=== PATIENT | female | born 1985 | race African-American/Black ===

== ENCOUNTER 2019-04-20 23:33 | Emergency (ER) | payer OTHER ==
[~2019-04-20] VITALS: Ht 162.6 cm; Wt 114.3 kg
[~2019-04-20 23:33] MED LIST: RANI-369 PO
[2019-04-20 23:59] VITALS: BP 123/81
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
== END 2019-04-21 00:29 | disposition home or self-care (01) ==
LOC: ER 23:33
DX: M79.661 Pain in right lower leg (principal); M54.5 Low back pain; R10.9 Unspecified abdominal pain; F12.90 Cannabis use, unspecified, uncomplicated; Z98.890 Other specified postprocedural states; V89.2XXA Person injured in unspecified motor-vehicle accident, traffic, initial encounter; Y93.89 Activity, other specified; Y92.89 Other specified places as the place of occurrence of the external cause; Y99.8 Other external cause status
CPT/HCPCS: 99281

== ENCOUNTER 2019-07-14 09:44 | Emergency (ER) | payer OTHER ==
[~2019-07-14] VITALS: Ht 162.6 cm; Wt 109.0 kg
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
--- NOTE | 2019-07-14 10:58 | RAD ---
One view abdomen pelvis HISTORY: Constipation Upright supine AP view abdomen pelvis There is air and stool scattered throughout the colon. There is multiple dilated air-filled loops of small bowel. There is no free air. IMPRESSION: Nonspecific bowel gas pattern could represent a mild ileus or partial small bowel obstruction. Electronically signed by: Ren Black III, MD (07/14/2019 10:55 AM) [id number]
[2019-07-14 11:03] LABS: BILIRUBIN,URINE NEGATIVE (NEG); CLARITY,URINE CLEAR; COLOR,URINE YELLOW; NITRITE,URINE NEGATIVE (NEG); PROTEIN,URINE NEGATIVE (NEG-TRACE)
[2019-07-14 11:09] LABS: BACTERIA,URINE FEW /HPF (0-FEW); RBC,URINE >40 /HPF (0-2)
[2019-07-14 11:10] LABS: SQUAMOUS EPITHELIAL CELL,UR FEW /LPF
[2019-07-14 11:17] LABS: U PREG PATIENT NEGATIVE (NEG)
[2019-07-14 13:15] VITALS: BP 147/94
[2019-07-14] MEDS ORDERED: MAGN296S68 PO (13:31)
--- NOTE | 2019-07-14 15:10 | RAD ---
Abdominal and Pelvis CT, Without Contrast: History: Constipation and abnormal x-ray Comparison: None. Procedure: Axial images are obtained of the abdomen and pelvis, without IV or oral contrast. Oral Contrast: No Findings: Evaluation of solid organs is limited without contrast. The gallbladder appears normal. The appendix is normal. The uterus appears within normal limits. The right ovary is not seen and may be small. There is a 4.3 x 3.0 cm cyst in the left ovary. Liver: Normal. Spleen: Normal. Pancreas: Normal. Adrenal Glands: Normal. Kidneys: Normal. There is no free air or free fluid. There is no lymphadenopathy. The urinary bladder appears normal. There is no pericolonic inflammation identified. There is multiple air and fluid-filled loops of small bowel. The colon appears normal. Impression: 1. Left ovarian cyst. Recommend a 3-4 month follow-up ultrasound. 2. Mild ileus. End impression PQRS Compliance Statement: One or more of the following individualized dose reduction techniques were utilized for this examination: 1. Automated exposure control 2. Adjustment of the mA and/or kV according to patient size 3. Use of iterative reconstruction technique Electronically signed by: Ren Black III, MD (07/14/2019 11:56 AM) [id number]
== END 2019-07-14 13:42 | disposition home or self-care (01) ==
LOC: ER 09:44
DX: K59.00 Constipation, unspecified (principal); R10.84 Generalized abdominal pain; R11.0 Nausea; E66.01 Morbid (severe) obesity due to excess calories; R14.0 Abdominal distension (gaseous); I10 Essential (primary) hypertension; F17.200 Nicotine dependence, unspecified, uncomplicated; F12.90 Cannabis use, unspecified, uncomplicated; Z98.890 Other specified postprocedural states; Z68.41 Body mass index [BMI] 40.0-44.9, adult
CPT/HCPCS: 74021; 74176; 81001; 81025; 87086; 99285

== ENCOUNTER 2019-11-03 03:46 | Emergency (ER) | payer OTHER ==
[~2019-11-03] VITALS: Ht 167.6 cm; Wt 100.0 kg
[~2019-11-03 03:46] MED LIST changes: +MAGN296S68 PO
[2019-11-03] MEDS ORDERED: IV NORMAL SALINE 1000ML BAG 1,000 ML IV ONE (04:15)
--- NOTE | 2019-11-03 04:21 | EKG ---
[facility] [address] [place] [address] Test Date: 2019-11-03 Test Time: 04:18:13 Pat Name: FRANCIA SERVIN Department: Room: Gender: F [employer] Observer: : 1985 Requested By: RAMEZ PADILLA Order Number: [id number] Reading MD: Measurements Intervals Kirby Rate: 102 P: 49 ME: 142 QRS: 14 QRSD: 78 T: 23 QT: 352 QTc: 463 Interpretive Statements SINUS TACHYCARDIA VENTRICULAR PREMATURE COMPLEX(ES) QRS(T) CONTOUR ABNORMALITY CONSIDER ANTEROLATERAL MYOCARDIAL DAMAGE T ABNORMALITY IN ANTERIOR LEADS ABNORMAL ECG RI6.01 No previous ECG available for comparison
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
--- NOTE | 2019-11-03 04:47 | RAD ---
CT head without contrast: Reason for examination: Altered mental status. Axial images were obtained through the brain. No contrast was administered. Exposure: One or more of the following individualized dose reduction techniques were utilized for this examination: 1. Automated exposure control 2. Adjustment of the mA and/or kV according to patient size 3. Use of iterative reconstruction technique. Ventricular systems are symmetric and not dilated. No midline shift is seen. There is no evidence of intracranial hemorrhage, infarct, mass or edema. No abnormalities are seen at the orbits. The paranasal sinuses and mastoid air cells are clear. No acute skull abnormality is seen. IMPRESSION: No acute intracranial abnormality evident. Electronically signed by: Kadie Shah MD (11/03/2019 4:44 AM) [id number]
[2019-11-03 05:41] LABS: BARBITURATES NEG (NEG); BENZODIAZEPINES NEG (NEG); CANNABINOIDS POS (NEG); COCAINE POS (NEG); METHADONE NEG (NEG); OPIATES NEG (NEG); PHENCYCLIDINE NEG (NEG)
[2019-11-03 05:43] LABS: AMPHETAMINE/METHAMPHETAMINE NEG (NEG)
[2019-11-03 05:49] LABS: BILIRUBIN,URINE NEGATIVE (NEG); CLARITY,URINE CLEAR; COLOR,URINE YELLOW; NITRITE,URINE NEGATIVE (NEG); PH,URINE 5.5 (<5.0-8.0); PROTEIN,URINE 100 mg/dL (NEG-TRACE); UROBILINOGEN,URINE 0.2 mg/dL (0.2 mg/dL)
[2019-11-03 06:04] LABS: BACTERIA,URINE 0 /HPF (0-FEW); RBC,URINE 0 /HPF (0-2); WBC,URINE 0 /HPF (0-4)
[2019-11-03 06:05] LABS: AMORPHOUS SEDIMENT,UR PRESENT /HPF
[2019-11-03 06:26] LABS: CALCIUM 8.3 mg/dL (8.5-10.1); CREATININE 0.8 mg/dL (0.6-1.0); GFR 100.6; POTASSIUM 3.9 mmol/L (3.5-5.1)
[2019-11-03 06:31] LABS: BASO # 0.1 x10^3/uL (0.0-0.2); BASO % 1 % (0-3); EOS % 0 % (0-3); HEMATOCRIT 41.7 % (36.0-47.0); LYMPH # 2.3 x10^3/uL (1.0-4.8); LYMPH % 29 % (24-48); MEAN CORPUSCULAR HEMOGLOBIN 31 pg (25-35); MEAN CORPUSCULAR HGB CONC 34 g/dL (31-37); MEAN CORPUSCULAR VOLUME 91 fL (79-100); MONO # 0.6 x10^3/uL (0.0-1.1); MONO % 8 % (0-9); NEUT # 4.9 x10^3/uL (1.8-7.7); NEUT % 62 % (31-73); PLATELET COUNT 251 x10^3/uL (140-400); RED BLOOD COUNT 4.61 x10^6/uL (3.50-5.40); RED CELL DISTRIBUTION WIDTH 13.8 % (11.5-14.5); WHITE BLOOD COUNT 7.9 x10^3/uL (4.0-11.0)
[2019-11-03 06:33] LABS: ALBUMIN 3.7 g/dL (3.4-5.0); MAGNESIUM 1.7 mg/dL (1.8-2.4); TOTAL BILIRUBIN 0.2 mg/dL (0.2-1.0); TOTAL PROTEIN 7.3 g/dL (6.4-8.2)
[2019-11-03 07:07] VITALS: BP 156/86
== END 2019-11-03 07:09 | disposition home or self-care (01) ==
LOC: ER 03:46
DX: R41.82 Altered mental status, unspecified (principal); F10.229 Alcohol dependence with intoxication, unspecified; I10 Essential (primary) hypertension; F17.200 Nicotine dependence, unspecified, uncomplicated; F12.90 Cannabis use, unspecified, uncomplicated; Z98.890 Other specified postprocedural states
CPT/HCPCS: 36415; 70450; 80053; 80307; 81001; 81025; 83735; 85025; 93005; 96360; 96361; 99285; G0480; J7030; P9612

== ENCOUNTER 2020-02-21 10:47 | Emergency (ER) | payer OTHER ==
[~2020-02-21] VITALS: Ht 162.6 cm; Wt 107.0 kg
--- NOTE | 2020-02-21 11:44 | PHYS DOC ---
Past Medical History Past Medical History: No Pertinent History (LEWIS GAITAN BEAM DYER RECESSED VAT) Past Surgical History: No Surgical History Additional Past Surgical Histo: c sec x2 (LEWIS GAITAN BEAM DYER RECESSED VAT) Smoking Status: Never Smoker Alcohol Use: Occasionally Drug Use: Marijuana Social History Narrative: DAILY MARIJUANA USE (MARQUEZLEWIS BEAM DYER RECESSED VAT) General Adult EDM: Chief Complaint: COUGH HPI: HPI: Patient is a 34 year old female who presents with for the last 8 days she has had nasal congestion, chest tightness, cough that causes her chest to hurt when she coughs and today began having a loss of taste and smell. Patient states that she got tested last week and it was negative. Patient states that her work sent her here today to get tested again especially since she suddenly lost her taste and smell. Patient states her symptoms have not gotten any worse but they have not gotten any better. Patient denies abdominal pain, nausea, vomiting, shortness of breath, diarrhea, fever, numbness or tingling, dizziness, syncope, headache, vision changes, focal weakness. Rates her discomfort at this time an 8 out of 10. No pain. Currently no chest pain as it only happens when she coughs. Patient has a history of hypertension and . (LEWIS GAITAN BEAM DYER RECESSED VAT) Review of Systems: Review of Systems: Constitutional: Denies fever or chills. [] Eyes: Denies change in visual acuity. [] HENT: + nasal congestion or denies sore throat. [] Respiratory: + cough or denies shortness of breath. [] Cardiovascular: + chest pain with coughing or denies edema. [] GI: Denies abdominal pain, nausea, vomiting, bloody stools or diarrhea. [] : Denies dysuria. [] Musculoskeletal: Denies back pain or joint pain. [] Integument: Denies rash. [] Neurologic: Denies headache, focal weakness or sensory changes. [] Endocrine: Denies polyuria or polydipsia. [] Lymphatic: Denies swollen glands. [] Psychiatric: Denies depression or anxiety. [] (LEWIS GAITAN BEAM DYER RECESSED VAT) Heart Score: Risk Factors: Risk Factors: DM, Current or recent (<one month) smoker, HTN, HLP, family history of CAD, obesity. Risk Scores: Score 0 - 3: 2.5% MACE over next 6 weeks - Discharge Home Score 4 - 6: 20.3% MACE over next 6 weeks - Admit for Clinical Observation Score 7 - 10: 72.7% MACE over next 6 weeks - Early Invasive Strategies (LEWIS GAITAN APRN) Allergies: Allergies: Allergies Coded Allergies Type Severity Reaction Last Updated Verified No Known Drug Allergies 11/07/13 No (LEWIS GAITAN APRN) Physical Exam: PE: Constitutional: Well developed, well nourished, no acute distress, non-toxic appearance. [] HENT: Normocephalic, atraumatic, bilateral external ears normal, oropharynx moist, no oral exudates, nose normal. Nasal congestion and postnasal drip. [] Eyes: PERRLA, EOMI, conjunctiva normal, no discharge. [] Neck: Normal range of motion, no tenderness, supple, no stridor. [] Cardiovascular:Heart rate regular rhythm, no murmur [] Lungs & Thorax: Bilateral upper breath sounds clear and lower is diminished to auscultation [] Abdomen: Bowel sounds normal, soft, no tenderness, no masses, no pulsatile masses. [] Skin: Warm, dry, no erythema, no rash. [] Back: No tenderness, no CVA tenderness. [] Extremities: No tenderness, no cyanosis, no clubbing, ROM intact, no edema. [] Neurologic: Alert and oriented X 3, normal motor function, normal sensory function, no focal deficits noted. [] Psychologic: Affect normal, judgement normal, mood normal. [] (LEWIS GAITAN APRN) Current Patient Data: Vital Signs: Vital Signs Date Time Temp Pulse Resp B/P (MAP) Pulse Ox O2 Delivery O2 Flow Rate FiO2 02/21/20 11:14 97.3 80 21 142/85 (104) 98 97.3 02/21/20 11:09 Room Air (LEWIS GAITAN APRN) EKG: EKG: [] (LEWIS GAITAN APRN) Radiology/Procedures: Radiology/Procedures: [] Impression: [facility] [address] [place] [address] IMAGING REPORT Signed PATIENT: FRANCIA SERVIN VACCOUNT: [id number] : 1985 LOCATION: ER AGE: 34 SEX: F EXAM STATUS: REG ER ORD. PHYSICIAN: LEWIS GAITAN APRN REASON: cough, soa PROCEDURE: PORTABLE CHEST 1V EXAM: CHEST ONE VIEW. HISTORY: Cough, shortness of breath. COMPARISON: None. FINDINGS: A frontal view of the chest is obtained. There are no confluent infiltrates. There is no pneumothorax or pleural effusion. The heart is not enlarged. IMPRESSION: 1. No confluent infiltrates. Electronically signed by: Lenny Lieberman MD (02/21/2020 12:22 PM) [id number] DICTATED and SIGNED BY: LEV LIEBERMAN MD DATE: 02/21/20 122 (LEWIS GAITAN APRN) Course & Med Decision Making: Course & Med Decision Making Pertinent Labs and Imaging studies reviewed. (See chart for details) COVID-19 CRITERIA: The patient was evaluated during the global COVID-19 pandemic, and that diagnosis was suspected/considered upon their initial presentation. Their evaluation, treatment and testing was consistent with current guidelines for patients who present with complaints or symptoms that may be related to COVID-19. See HPI. Alert and oriented x4. Ambulatory to steady gait. Speaks in full complete sentences. Nasal congestion with postnasal drip present. Lungs are clear to auscultation in upper lobes and diminished in lower lobes. Vital signs are within normal limits. Skin pink warm and dry. Afebrile. [] (LEWIS GAITAN APRN) Dragon Disclaimer: Dragon Disclaimer: This electronic medical record was generated, in whole or in part, using a voice recognition dictation system. (LEWIS GAITAN APRN) COVID-19 Patient Risks: Age 65 or older: No Sign of co-morbidity: Yes Exp to person + for COVID: No Exp to PUI: No Travel from affected area: No Lower respiratory symptoms: Yes Fever: No Other: Yes (nasal congestion) (LEWIS GAITAN APRN) PPE Use: Full PPE with N95 mask or PAPR: Yes (LEWIS GAITAN APRN) Departure Departure Impression: Primary Impression: Person under investigation for COVID-19 Additional Impressions: Sinusitis Qualified Codes: J01.90 - Acute sinusitis, unspecified Loss of taste Loss of smell Disposition: 01 DC HOME SELF CARE/HOMELESS Condition: STABLE Referrals: NO PCP (PCP) Patient Instructions: Sinusitis Additional Instructions: Quarantine until you are Covid test comes back in 24 to 48 hours. Take medication as prescribed and with food. Take Tylenol or ibuprofen for your pain. You can also take [id number] allergy medicines to help dry up your nasal congestion. Drink plenty of fluids. Return for severe shortness of breath. You have been tested for or diagnosed with COVID-19. It is an infection caused by a new type of coronavirus. COVID-19 will cause cold-like or mild flu symptoms in most. It can cause more severe symptoms like problems breathing in some. There is no treatment for COVID-19. The body will clear the infection over time. Self-care will help to ease discomfort. Steps to Take: Self-Care Rest as needed. Healthy habits may help you feel better. Steps include: Choose healthy foods including fruits and vegetables. Drink water throughout the day. Get plenty of sleep each night. If you smoke, try to quit. It may ease breathing. Avoid alcohol. Keep Others Healthy The virus can spread to others. Droplets are released every time you sneeze or cough. The droplets can get into the mouth, nose, or eyes of people near you and lead to infection. To lower the chances of spreading COVID-19 to others: Stay at home until your doctor has said it is safe to leave. If you tested positive this will mean staying isolated until both of the following are true: At least 7 days have passed since the start of illness. You are free of fever for at least 72 hours without the use of medicine. During this time: - Avoid public areas, events, or transportation. Do not return to work or school until your doctor has said it is safe to do so. - Call ahead if you need to go to a medical center. Let them know you may have COVID-19. It will help them guide you where to go. They may also ask you to wear a facemask when you come to the office. - If you call for emergency medical services, let them know you may have COVID- 19. While at home: - Try to avoid close contact with others. Stay about 6 feet away. - If possible, spend most of your time in a separate room from others. - Use a face mask if you will be in close contact with others such as sharing a room or vehicle. - Have someone wipe down common surfaces in the home. Use household director of occupational therapy every day on areas like doorknobs, counters, or sinks. - Cough or sneeze into a tissue. Throw the tissue away right after use. If a tissue is not available, cough or sneeze into your elbow. - Wash your hands often. Wash them after sneezing or coughing. Use soap and water and wash for at least 20 seconds. Alcohol based hand stone cleaner can be used if soap and water is not available. - Do not prepare food for others. Avoid sharing personal items like forks, spoons, or toothbrushes. - Avoid close contact with pets while you are sick. There is no evidence of the virus passing to pets. This is a safety step until more is known about this virus. Isolation can be frustrating. Social interaction can help. Keep in touch with friends and family through phone and tech options. You can still interact with others in your home, just keep a safe distance of about 6 feet. Follow-up: Your doctors office will check in with you to see if there are any changes in y our health. You may be asked to keep track of symptoms to share with them. They will also let you know when you are clear to be in public again. Problems to Look Out For: Contact your doctor if your recovery is not going as you expect. Get emergency care if you have problems such as: - Trouble breathing - Nonstop chest pain or pressure - Changes in awareness, confusion, or problems waking - Lips or face have bluish color - Worsening of symptoms If you think you have an emergency, call for emergency medical services right away. As taken from [facility] Albuterol Sulfate (PROAIR HFA INHALER) 8.5 Gm Hfa.aer.ad 1 PUFF INH PRN Q6HRS PRN for SHORTNESS OF BREATH, #1 INHALER 0 Refills Prov: LEWIS GAITAN BEAM DYER RECESSED VAT 02/21/20 Azithromycin (AZITHROMYCIN TABLET) 250 Mg Tablet 1 PKG PO UD for 5 Days, #6 TAB 0 Refills 2 the first day followed by 1 for days 2-5 Prov: LEWIS GAITAN APRN 02/21/20 Methylprednisolone (MEDROL) 4 Mg Tab.ds.pk 1 PKG PO UD, #1 PKG Prov: LEWIS GAITAN APRN 02/21/20 Attending Signature Attending Signature I have reviewed the PA/GOLD RECLAIMER's note and plan of care. I was available for consultation as needed during the patient's visit in the emergency department. I agree with the clinical impression, plan, and disposition. (NATALIE MONTALVO DO) LEWIS GAITAN APRN Feb 21, 2020 11:44 NATALIE MONTALVO DO Feb 22, 2020 06:40
--- NOTE | 2020-02-21 12:25 | RAD ---
EXAM: CHEST ONE VIEW. HISTORY: Cough, shortness of breath. COMPARISON: None. FINDINGS: A frontal view of the chest is obtained. There are no confluent infiltrates. There is no pneumothorax or pleural effusion. The heart is not enlarged. IMPRESSION: 1. No confluent infiltrates. Electronically signed by: Lenny Lieberman MD (02/21/2020 12:22 PM) [id number]
[2020-02-21] MEDS ORDERED: AZIT250T6 PO (12:37)
[2020-02-21] MEDS ORDERED: METH4TAB2 PO (12:37)
[2020-02-21] MEDS ORDERED: ALBU2.5V8 INH (12:37)
[2020-02-21 14:04] VITALS: BP 175/101
--- NOTE | 2020-02-23 10:35 | NUR ---
IP: Informed pt of negative COVID test. Pt verbalized understanding.
== END 2020-02-21 14:09 | disposition home or self-care (01) ==
LOC: ER 10:47
DX: J01.90 Acute sinusitis, unspecified (principal); Z20.828 Contact with and (suspected) exposure to other viral communicable diseases; R07.89 Other chest pain; R09.81 Nasal congestion; R05 Cough; R43.9 Unspecified disturbances of smell and taste; F12.90 Cannabis use, unspecified, uncomplicated; Z98.890 Other specified postprocedural states
CPT/HCPCS: 71045; 99284; C9803; U0003